=== PATIENT | male | born 1960 | race Caucasian/White ===

== ENCOUNTER 2024-11-29 11:59 | Emergency (ER) | payer MEDICARE, MEDICAID, SELFPAY ==
--- OUTSIDE RECORDS SUMMARY | 2024-11-26 12:09 | XMS_ITS | Continuity of Care Document ---
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 Name Role Phone Dany Gomez DO Primary Care Provider Sandra Velasco DO Attending Provider Sandra Velasco DO Referring Provider Peyton Arzate APRN Attending Provider Terell Benson DO Emergency Provider Care Teams Patient Care Team Team Status: Active Member Role Status Dates Dany Gomez DO Primary Care Provider Active Visit Care Team Team Status: Inactive Member Role Status Dates Dany Gomez DO Primary Care Provider Active St art: September 10, 2024 End: September 10, 2024 Sandra Velasco DO Attending Provider Active S tart: September 10, 2024 End: September 10, 2024 Visit Care Team Team Status: Inactive Member Role Status Dates Dany Gomez DO Primary Care Provider Active St art: September 14, 2024 End: September 14, 2024 Sandra Velasco DO Attending Provider Active S tart: September 14, 2024 End: September 14, 2024 Sandra Velasco DO Referring Provider Active S tart: September 14, 2024 End: September 14, 2024 Visit Care Team Team Status: Active Member Role Status Daily Gomez DO Primary Care Provider Active St art: November 23, 2024 Peyton Arzate APRN Attending Provider Active S tart: November 23, 2024 Patient Care Team Team Status: Inactive Member Role Status Dates Dany Gomez DO Primary Care Provider Active art: November 26, 2024 End: November 26, 2024 Terell Benson DO Emergency Provider Active art: November 26, 2024 End: November 26, 2024 Chief Complaint and Reason for Visit Chief Complaint Admit Date SOB, Syncope September 10, 2024 8:0 9am SOB, Syncope September 14, 2024 11: 31am Z98.61 I25.10 November 23, 2024 1:00p m Syncope November 26, 2024 12:1 6pm Reason for Referral Referring Provider Name Referring Provider Address Referring Provider Phone Referral Date Requested Appointment Date Referral Reason W Sachin Rod [address] [address] [facility] [address] Work Phone: previous appointments cancelled previous appointments cancelled Allergies, Adverse Reactions, Alerts Allergen Type Severity Reaction Last Updated Verified Status beta blockers Adverse Reaction Unknown sleepy, couldn't function September 10, 2024 8:53am No Active Social History Smoking Status Status Start Date End Date Date of Observa tion Smokes tobacco daily (finding) November 26, 2024 1:24pm Observation Status Observation Response Date of Response Legal Sex Male (finding) Sex Assigned At Male [birth year] Family History Relationship Condition Age at Onset Recorded Date/T edu father Diabetes mellitus Unknown Aneurysm Unknown Dementia Unknown Neuropathy Unknown Hypertension Unknown Malignant neoplasm Unknown sister Malignant neoplasm Unknown Problems Active Problems Medical Problem Onset Date Status Syncope Unknown Active 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 Unknown Active GERD (gastroesophageal reflux disease) Unknown Active Galeas's esophagus Unknown Active Medications Medication Status Dose Units Route Directions Qty Days St art Date Stop Date End Date Instructions Adherence Cyclobenzap rine 10 mg tablet Discont inued 10 MG PO Daily at bedtime 2020 12:00a m 2020 7:59a m Sucralfate (Carafate) 1 gram tablet Discont inued 1 GM PO Twice daily 2020 12:00a m September 10, 2024 8:49a m Simvastatin 40 mg tablet Active 40 MG PO Daily at bedtime 2020 12:00a m Unknown Albuterol Sulfate 90 mcg/actuati on HFA aerosol inhaler Active 90 MCG INHALA TION Twice daily as needed for Shortness Of Breath 2020 12:00a m Unknown Cyclobenzap rine 10 mg tablet Discont inued 10 MG PO Three times daily as needed for back spasms 20 2020 12:00a m September 10, 2024 8:50a m Cephalexin 500 mg capsule Discont inued 500 MG PO Three times daily 15 2020 12:00a m September 10, 2024 8:50a m Oxycodone 5 mg capsule Discont inued 5 - 10 MG PO Q6H as needed for pain 40 8 2020September 10, 2024 8:49a m Prednisone 10 mg tablets,dos e pack Discont inued 1 dose pk PO per package directions 30 2020 12:00a m September 10, 2024 8:49a m take 4 tabs for 3 days then take 3 tabs for 3 days then take 2 tabs for 3 days then take 1 tab for 3 days Ibuprofen 800 mg tablet Active 800 MG PO Every 8 hours as needed for pain September 10, 2024 12:00a m Unknown Budesonide- Formoterol (Breyna) 160-4.5 mcg/actuati on HFA aerosol inhaler Active 2 INH INHALA TION Twice daily September 10, 2024 12:00a m Unknown Latanoprost 0.005 % drops Active 1 DROPS EYE-LEE TH Daily at bedtime September 10, 2024 12:00a m Unknown Cyclobenzap rine 10 mg tablet Active 10 MG PO Twice daily as needed for back spasms September 10, 2024 12:00a m Unknown Ticagrelor (Brilinta) 90 mg tablet Active 90 MG PO Twice daily 180 September 14, 2024 12:00a m Unknown Lisinopril- Hydrochloro thiazide 20-12.5 mg tablet Active 1 TAB PO Daily at bedtime August 04, 2018 12:00a m Unknown Omeprazole 40 mg capsule,del ayed release(DR/ EC) Active 1 TAB PO Twice daily August 04, 2018 12:00a m Unknown Hyoscyamine Sulfate 0.125 mg tablet,disi ntegrating Active 1 TAB SUBLIN GUAL Q4H as needed for chest discomfort August 04, 2018 12:00a m Unknown Diazepam (Valium) 5 mg tablet Active 1 TAB PO Three times daily August 04, 2018 12:00a m Unknown Vortioxetin e (Trintellix ) 10 mg tablet Active 5 MG PO Twice daily August 04, 2018 12:00a m Unknown Immunizations Immunization Event Date Not Given Reason Dose Number [employer]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 Lot Number Vaccine Information Statement (VIS) Detail Administration Location COVID-19 mRNA, Comirnaty (Ignyta) September 12, 2020 COVID-19 mRNA, Comirnaty (Ignyta) October 03, 2020 Medical Equipment Device Date Implanted Device Details CL STENT YENNI FRONTIER 2.5 X 18 September 14, 2024 Spinal fixation plate, non-bioabsorbable February 06, 2021 RAÚL: ()[id number] Issuing Agency: [facility] Device Id: [id number] Spinal fixation plate, non-bioabsorbable February 06, 2021 RAÚL: ()[id number] Issuing Agency: [facility] Device Id: [id number] Spinal fixation plate, non-bioabsorbable February 06, 2021 RAÚL: ()[id number] Issuing Agency: [facility] Device Id: [id number] Spinal fixation plate, non-bioabsorbable February 06, 2021 RAÚL: ()[id number] Issuing Agency: [facility] Device Id: [id number] Spinal fixation plate, non-bioabsorbable February 06, 2021 RAÚL: ()[id number] Issuing Agency: [facility] Device Id: [id number] Spinal fixation plate, non-bioabsorbable February 06, 2021 RAÚL: ()[id number] Issuing Agency: [facility] Device Id: [id number] Spinal fixation plate, non-bioabsorbable February 06, 2021 RAÚL: ()[id number] Issuing Agency: [facility] Device Id: [id number] Intervertebral-body internal spinal fixation system February 06, 2021 RAÚL: ()[id number] Issuing Agency: [facility] Device Id: [id number] Expiration Date: 2024-06-12 Serial Number: [id number] Intervertebral-body internal spinal fixation system February 06, 2021 RAÚL: [id number] Issuing Agency: [facility] Device Id: [id number] Expiration Date: 2025-07-04 Serial Number: [id number] Procedures Procedure Date Performed Status CL LHC & COR Angio September 14, 2024 10:15am comp leted CL Stent 1st Vessel LAD FRANCESCO September 14, 2024 10: 15am completed XR chest 1V portable November 26, 2024 12:24pm com pleted Relevant Diagnostic Tests and/or Laboratory Data Laboratory Results Test Collection Date/Time Result Date/Time Result Interpretation Reference Range Result Comment Performing Site Corrected White Blood Count September 10, 2024 8:38am September 10, 2024 8:54am 9.5 10*3/uL 4.1-10.5 [facility] [id number] [address] [place], [place] [address] Corrected White Blood Count November 26, 2024 11:55am November 26, 2024 12:41pm 11.9 10*3/uL Above high normal 4.1-10.5 [facility] [id number] [address] [place], [place] [address] Uncorrect ed WBC Count September 10, 2024 8:38am September 10, 2024 8:54am 9.5 10*3/uL 4.1-10.5 [facility] [id number] [address] [place], [place] [address] Uncorrect ed WBC Count November 26, 2024 11:55am November 26, 2024 12:41pm 11.9 10*3/uL Above high normal 4.1-10.5 [facility] [id number] [address] [place], [place] [address] Red Blood Count September 10, 2024 8:38am September 10, 2024 8:54am 4.88 10*6/uL 3.90-5.60 [facility] [id number] [address] [place], [place] [address] Red Blood Count November 26, 2024 11:55am November 26, 2024 12:41pm 5.14 10*6/uL 3.90-5.60 [facility] [id number] [address] [facility] [address] Hemoglobi n September 10, 2024 8:38am September 10, 2024 8:54am 15.4 g/dL 13.0-17.0 [facility] [id number] [address] [facility] [address] Hemoglobi n November 26, 2024 11:55am November 26, 2024 12:41pm 16.1 g/dL 13.0-17.0 [facility] [id number] [address] [facility] [address] Hematocri t September 10, 2024 8:38am September 10, 2024 8:54am 45.2 % 38.8-50.0 [facility] [id number] [address] [place] [address] Hematocri t November 26, 2024 11:55am November 26, 2024 12:41pm 47.2 % 38.8-50.0 [facility] [id number] [address] [place] [address] Mean Corpuscul ar Volume September 10, 2024 8:38am September 10, 2024 8:54am 92.7 fL 83.5-101 [facility] [id number] [address] [place] [address] Mean Corpuscul ar Volume November 26, 2024 11:55am November 26, 2024 12:41pm 91.9 fL 83.5-101 [facility] [id number] [address] [place] [address] 900[address] Mean Corpuscul ar Hemoglobi n September 10, 2024 8:38am September 10, 2024 8:54am 31.6 pg 27.5-35.2 [facility] [id number] [address] [place] [address] 99937 Mean Corpuscul ar Hemoglobi n November 26, 2024 11:55am November 26, 2024 12:41pm 31.4 pg 27.5-35.2 [facility] [id number] [address] [facility] [address] Mean Corpuscul ar Hemoglobi n Concent September 10, 2024 8:38am September 10, 2024 8:54am 34.2 g/dL 32.5-35.6 [facility] [id number] [address] [facility] [address] Mean Corpuscul ar Hemoglobi n Concent November 26, 2024 11:55am November 26, 2024 12:41pm 34.2 g/dL 32.5-35.6 [facility] [id number] [address] [place] [address] 39825 Red Cell Distribut ion Width September 10, 2024 8:38am September 10, 2024 8:54am 13.9 % 12.0-14.8 [facility] [id number] [address] [place] [address] 68536 Red Cell Distribut ion Width November 26, 2024 11:55am November 26, 2024 12:41pm 14.0 % 12.0-14.8 [facility] [id number] [address] [place] [address]23 Platelet Count September 10, 2024 8:38am September 10, 2024 8:54am 224 10*3/uL 150-450 [facility] [id number] [address] [place] [address] Platelet Count November 26, 2024 11:55am November 26, 2024 12:41pm 362 10*3/uL 150-450 [facility] [id number] [address] [place] [address] Mean Platelet Volume September 10, 2024 8:38am September 10, 2024 8:54am 8.0 fL 6.6-10.1 [facility] [id number] [address] [place] [address] 9[address]60 Mean Platelet Volume November 26, 2024 11:55am November 26, 2024 12:41pm 8.3 fL 6.6-10.1 [facility] [id number] [address] [place] [address] 29393 Monocyte Distribut ion Width November 26, 2024 11:55am November 26, 2024 12:41pm 19.91 % 0.00-20.00 [facility] [id number] [address] [place] [address] Neutrophi ls (%) (Auto) September 10, 2024 8:38am September 10, 2024 8:54am 69.8 % . [facility] [id number] [address] [facility] [address] Neutrophi ls (%) (Auto) November 26, 2024 11:55am November 26, 2024 12:41pm 76.9 % . [facility] [id number] [address] [facility] [address] Lymphocyt es (%) (Auto) September 10, 2024 8:38am September 10, 2024 8:54am 19.2 % . [facility] [id number] [address] [facility] [address] Lymphocyt es (%) (Auto) November 26, 2024 11:55am November 26, 2024 12:41pm 16.4 % . [facility] [id number] [address] [facility] [address] Monocytes (%) (Auto) September 10, 2024 8:38am September 10, 2024 8:54am 6.4 % . [facility] [id number] [address] [facility] [address] Monocytes (%) (Auto) November 26, 2024 11:55am November 26, 2024 12:41pm 5.0 % . [facility] [id number] [address] [facility] [address] Eosinophi ls (%) (Auto) September 10, 2024 8:38am September 10, 2024 8:54am 3.9 % . [facility] [id number] [address] [facility] [address] Eosinophi ls (%) (Auto) November 26, 2024 11:55am November 26, 2024 12:41pm 1.1 % . [facility] [id number] [address] [facility] [address] Basophils (%) (Auto) September 10, 2024 8:38am September 10, 2024 8:54am 0.7 % . [facility] [id number] [address] [facility] [address] Basophils (%) (Auto) November 26, 2024 11:55am November 26, 2024 12:41pm 0.6 % . [facility] [id number] [address] [facility] [address] Nucleated RBC Relative Count (auto) September 10, 2024 8:38am September 10, 2024 8:54am 0.1 /100{WB C} 0-0.5 [facility] [id number] [address] [place], [place] [address] Nucleated RBC Relative Count (auto) November 26, 2024 11:55am November 26, 2024 12:41pm 0.2 /100{WB C} 0-0.5 [facility] [id number] [address] [place], [place] [address] Neutrophi ls # (Auto) September 10, 2024 8:38am September 10, 2024 8:54am 6.6 10*3/uL 1.8-7.7 [facility] [id number] [address] [place], [place] [address] Neutrophi ls # (Auto) November 26, 2024 11:55am November 26, 2024 12:41pm 9.2 10*3/uL Above high normal 1.8-7.7 [facility] [id number] [address] [place], [place] [address] Lymphocyt es # (Auto) September 10, 2024 8:38am September 10, 2024 8:54am 1.8 10*3/uL 1.00-4.8 [facility] [id number] [address] [place], [place] [address] Lymphocyt es # (Auto) November 26, 2024 11:55am November 26, 2024 12:41pm 2.0 10*3/uL 1.00-4.8 [facility] [id number] [address] [place], [place] [address] Monocytes # (Auto) September 10, 2024 8:38am September 10, 2024 8:54am 0.6 10*3/uL 0.0-0.8 [facility] [id number] [address] [place], [place] [address] Monocytes # (Auto) November 26, 2024 11:55am November 26, 2024 12:41pm 0.6 10*3/uL 0.0-0.8 [facility] [id number] [address] [place], [place] [address] Eosinophi ls # (Auto) September 10, 2024 8:38am September 10, 2024 8:54am 0.4 10*3/uL 0.0-0.45 [facility] [id number] [address] [facility] [address] Eosinophi ls # (Auto) November 26, 2024 11:55am November 26, 2024 12:41pm 0.1 10*3/uL 0.0-0.45 [facility] [id number] [address] [facility] [address] Basophils # (Auto) September 10, 2024 8:38am September 10, 2024 8:54am 0.1 10*3/uL 0.0-0.2 [facility] [id number] [address] [facility] [address] Basophils # (Auto) November 26, 2024 11:55am November 26, 2024 12:41pm 0.1 10*3/uL 0.0-0.2 [facility] [id number] [address] [facility] [address] Prothromb in Time September 10, 2024 8:38am September 10, 2024 9:24am 10.6 s 9.0-12.9 A hematocrit value greater than 55% may lead to inaccurate results in coagulation testing. Patients having hematocrit values >55% require a special collection tube for coagulation studies. Please contact the laboratory at [phone] for redraw instructions . [facility] [id number] [address] [facility] [address] Prothromb in Time November 26, 2024 11:55am November 26, 2024 1:12pm 11.8 s 9.0-12.9 A hematocrit value greater than 55% may lead to inaccurate results in coagulation testing. Patients having hematocrit values >55% require a special collection tube for coagulation studies. Please contact the laboratory at [phone] for redraw instructions . [facility] [id number] [address] [facility] [address] Prothromb Time Internati onal Ratio September 10, 2024 8:38am September 10, 2024 9:24am 0.9 INR Therapeutic Range A) Pre- and Peroperative OAT started two weeks before surgery. NOT HIP SURGERY: 1.5 - 2.5 HIP SURGERY: 2 - 3B) Primary and secondary prevention of venous THROMBOSIS: 2 - 3C) Active venous thrombosis, pulmonary embolismand prevention of recurrent venous thrombosis: 2 - 3D) Prevention of arterial thromboembol ismincluding patients with mechanical heart valves: 3 - 4.5 [facility] [id number] [address] [place] [address] Prothromb Time Internati onal Ratio November 26, 2024 11:55am November 26, 2024 1:12pm 1.0 INR Therapeutic Range A) Pre- and Peroperative OAT started two weeks before surgery. NOT HIP SURGERY: 1.5 - 2.5 HIP SURGERY: 2 - 3B) Primary and secondary prevention of venous THROMBOSIS: 2 - 3C) Active venous thrombosis, pulmonary embolismand prevention of recurrent venous thrombosis: 2 - 3D) Prevention of arterial thromboembol ismincluding patients with mechanical heart valves: 3 - 4.5 [facility] [id number] [address] [place] [address] Activated Partial Thrombopl ast Time September 10, 2024 8:38am September 10, 2024 9:24am 31.7 s 25.1-36.5 A hematocrit value greater than 55% may lead to inaccurate results in coagulation testing. Patients having hematocrit values >55% require a special collection tube for coagulation studies. Please contact the laboratory at [phone] for redraw instructions . [facility] [id number] [address] [place] [address] Glucose Level November 26, 2024 11:55am November 26, 2024 12:59pm 181 mg/dL Above high normal 70-100 ADA recommended reference rangeRandom Glucose Reference Range is dependent on time and content of last meal. Glucose of more than 200 mg/dL in a nonstressed, ambulatory subject supports the diagnosis of Diabetes Mellitus. [facility] [id number] [address] [facility] [address] Blood Urea Nitrogen September 10, 2024 8:38am September 10, 2024 10:08am 19 mg/dL 12-11 [facility] [id number] [address] [place], [place] [address] Blood Urea Nitrogen November 26, 2024 11:55am November 26, 2024 12:59pm 22 mg/dL 12-11 [facility] [id number] [address] [facility] [address] Creatinin e September 10, 2024 8:38am September 10, 2024 10:08am 1.18 mg/dL 0.70-1.30 [facility] [id number] [address] [facility] [address] Creatinin e November 26, 2024 11:55am November 26, 2024 12:59pm 1.91 mg/dL Above high normal 0.70-1.30 [facility] [id number] [address] [place] [address] Estimated GFR (CKD-EPI) September 10, 2024 8:38am September 10, 2024 10:08am > 60.0 mL/Min [facility] [id number] [address] [place] [id number] Estimated GFR (CKD-EPI) November 26, 2024 11:55am November 26, 2024 12:59pm 39.145 mL/Min [facility] [id number] [address] [place], [place] [address] Sodium Level September 10, 2024 8:38am September 10, 2024 10:08am 142 mmol/L 136-145 [facility] [id number] [address] [place], [place] [address] Sodium Level November 26, 2024 11:55am November 26, 2024 12:59pm 139 mmol/L 136-145 [facility] [id number] [address] [place] [address]34 Potassium Level September 10, 2024 8:38am September 10, 2024 10:08am 4.2 mmol/L 3.5-5.1 [facility] [id number] [address] [place], [place] [address] Potassium Level November 26, 2024 11:55am November 26, 2024 12:59pm 3.8 mmol/L 3.5-5.1 [facility] [id number] [address] [place], [place] [address] Chloride Level September 10, 2024 8:38am September 10, 2024 10:08am 104 mmol/L 98-107 [facility] [id number] [address] [place], [place] [address] Chloride Level November 26, 2024 11:55am November 26, 2024 12:59pm 100 mmol/L 98-107 [facility] [id number] [address] [place] [address]153 Carbon Dioxide Level September 10, 2024 8:38am September 10, 2024 10:08am 28.4 mmol/L 21.0-31.0 [facility] [id number] [address] [place] [address] 0[address]60 Carbon Dioxide Level November 26, 2024 11:55am November 26, 2024 12:59pm 26.5 mmol/L 21.0-31.0 [facility] [id number] [address] [place] [address] 86096 Anion Gap September 10, 2024 8:38am September 10, 2024 10:08am 13.8 mEq/L 6.0-15.0 [facility] [id number] [address] [place] [address] 80359 Anion Gap November 26, 2024 11:55am November 26, 2024 12:59pm 16.3 mEq/L Above high normal 6.0-15.0 [facility] [id number] [address] [place], [place] [address] Calcium Level November 26, 2024 11:55am November 26, 2024 12:59pm 9.8 mg/dL 8.6-10.3 [facility] [id number] [address] [place] [address] 36432 Total Creatine Kinase November 26, 2024 11:55am November 26, 2024 1:00pm 77 U/L 30-223 [facility] [id number] [address] [place], [place] [address] Troponin I High Sensitivi ty November 26, 2024 2:47pm November 26, 2024 3:49pm 7 ng/L 0-20 The Troponin units of report have been changed to meet the Chest Pain Accreditatio n requirement, element EC5.M1l2. Troponin units are changed from pg/ml to ng/L. Also, the decimal is removed and results are in whole numbers. [facility] [id number] [address] [place] [address]55 B-Type Natriuret ic Peptide November 26, 2024 11:55am November 26, 2024 1:05pm 19.0 pg/mL 5-100 [facility] [id number] [address] [facility] [address] Cholester ol Level September 10, 2024 8:38am September 10, 2024 10:08am 158 mg/dL 140-200 Chol less than 200 mg/dl low riskChol 201-239 mg/dl borderline riskChol 240 mg/dl and greater high risk [facility] [id number] [address] [facility] [address] HDL Cholester ol September 10, 2024 8:38am September 10, 2024 10:08am 54 mg/dL 23-92 HDL CHOL ATP-III CLASSIFICATI ON Cardiovascul ar RiskHDL > or equal to 60 mg/dL LOWHDL < 40 mg/dL HIGH [facility] [id number] [address] [facility] [address] Triglycer ides Level September 10, 2024 8:38am September 10, 2024 10:08am 85 mg/dL 0-149 TRIG ATP III CLASSIFICATI ONTRIG less than 150 mg/dL NormalTRIG 150-199 mg/dL Borderline highTRIG 200-500 mg/dL High TRIG greater than 500 mg/dL Very highStandard traceable to the Center for Disease Conrtrol and Prevention (CDC) test method. [facility] [id number] [address] [place], [place] [address] LDL Cholester ol, Calculate d September 10, 2024 8:38am September 10, 2024 10:08am 87 mg/dL 0-100 LDL ATP III CLASSIFICATI ONLDL less than 100 mg/dL OptimalLDL 100-129 mg/dL Near or above optimalLDL 130-159 mg/dL Borderline highLDL 160-189 mg/dL HighLDL greater than 189 mg/dL Very high [facility] [id number] [address] [place] [address] 8[address]17 VLDL Cholester ol September 10, 2024 8:38am September 10, 2024 10:08am 17 mg/dL [facility] [id number] [address] [place], [place] [id number] Cholester ol/HDL Ratio September 10, 2024 8:38am September 10, 2024 10:08am 2.9 <5.0 [facility] [id number] [address] [place], [place] [id number] Pharmacy Creatinin e Clearance (Chem September 10, 2024 8:38am September 10, 2024 10:08am N/A [facility] [id number] [address] [place], [place] [id number] Pharmacy Creatinin e Clearance (Chem November 26, 2024 11:55am November 26, 2024 12:59pm 52.64 [facility] [id number] [address] [place], [place] [id number] Diagnostic Imaging Reports Author Red Nash [facility] Report Date/Time November 26, 2024 1:00 pm [facility] Main [place] [id number] XRay Report Signed Patient: Justen Lynne Jr MR#: [id number] : 1960 Acct:[id number] Age/Sex: 64 / M ADM Date: 5 Loc: ER Room: Type: PRE ER Attending Dr: Copies to: Terell Benson DO~ Ordering Provider: Terell Benson DO Date of Service: 11/26/24 XR/XR chest 1V portable: Chest Pain SINGLE VIEW CHEST CLINICAL HISTORY: Syncope shortness breath, dizziness, hypotensive COMPARISON: 10/05/2022 FINDINGS: Mildly enlarged cardiac silhouette. No airspace opacity, effusion or pneumothorax. XR/XR chest 1V portable IMPRESSION: NO ACUTE FINDINGS Impression dictated by: Red Nash M.D. 11/26/2024 1:00 PM Dictation Location: [place] [address] Transcribed By: [facility] 11/26/24 1300 Dictated By: Red Nash MD 11/26/24 1258 Signed By: <Electronically signed by Red Nash MD in OV> 11/26/24 1300 Vital Signs Vital Reading Result Reference Range Collection Date/Time Height 72 [in_i] September 14 8:25am Weight 108.00 kg September 14 8:25am Body Temperature 98.5 [degF] 97.6-99.0 September 14, 2024 8:25am Heart Rate 79 /min 60-100 September 14 3:45pm Respiratory rate 18 /min 12-24 September 14, 2024 3:45pm Oxygen saturation by Pulse oximetry 98 % 95-100 September 14, 2024 3:4 5pm BP Systolic 149 mm[Hg] 100-140 September 14 3:45pm BP Diastolic 86 mm[Hg] 60-100 September 14 3:45pm Height 72 [in_i] October 20, 2024 11:44am Weight 107.18 kg October 20, 2024 11:44am Height 72 [in_i] November 26, 2024 12:21pm Weight 115.60 kg November 26, 2024 12:21pm Body Temperature 98.2 [degF] 97.6-99.0 November 26, 2024 12:21pm Heart Rate 95 /min 60-100 November 26, 2024 3:32pm Respiratory rate 20 /min -November 26, 2024 3:32pm Oxygen saturation by Pulse oximetry 98 % 95-100 November 26, 2024 3:32 pm BP Systolic 120 mm[Hg] 100-140 November 26, 2024 3:32pm BP Diastolic 71 mm[Hg] 60-100 November 26, 2024 3:32pm Advance Directives Advance Directive Response Recorded Date/ Time Advance Directives No July 29 10:45am Insurance Providers Guarantor Justen Lynne Jr Address [address] [place] [phone] Contact Info. Home Phone: Payer Policy Id Subscriber's Name Subscriber Id Corinne ctive Date Expiration Date Medicaid [id number] Justen Lynne Jr [id number] [facility] Medicaid [id number] Justen Lynne Jr [id number] [place] [id number] Justen Lynne Jr [id number] [employer] HMO [id number] Justen Lynne Jr [id number] Encounters Encounter Location(s) Arrival/Admit Date Discharge/Depart Date Provider(s) Departed Clinical -Pre-Surgical Testing September 10, 2024 8:09am September 10, 2024 8:10am Sadnra Velasco DO Departed Surgical Day Care -Rn Gyn September 14, 2024 11:31am September 14, 2024 4:00pm Sandra Velasco DO Registered Recurring -Cardiac Rehabilitation November 23, 2024 1:00pm Peyton Arzate APRN Departed Emergency -Emergency Room November 26, 2024 12:16pm November 26, 2024 4:08pm Functional Status Observation Response Date Recorded Dressing Patient at Baseline September 14, 2024 4:00pm Eating Patient at Baseline September 14, 2024 4:00pm Bathing Patient at Baseline September 14, 2024 4:00pm Disability Status Patient at Baseline August 4:00pm Mental Status Observation Response Date Recorded Cognitive Status Patient at Baseline September 14, 2024 4:00pm Cognitive/Mental Status Assessments Plan of Treatment Future Tests Future scheduled test information is unavailable Pending Tests Pending diagnostic test information is unavailable Future Visits Future appointment information is unavailable Referrals to Other Providers Reason for Referral Referral Start Date Provider Provider Contact Information Provider Address previous appointments cancelled Sandra Velasco DO Email: [email or web address] Work Phone: [address] [facility] [address] Dany Gomez , DO Email: [email or web address] Phone: [address] [facility] [address] Dany Gomez , DO Email: [email or web address] Phone: [address] [place] [phone] Future Procedures Procedure Name Ordered Date Scheduled Date Admit Status Order September 14, 2024 12:05pm Apri l 2024 12:05pm Discharge Order September 14, 2024 11:18am August 192024 11:18am Future Medications Future medication information is unavailable Patient Instructions Instruction Admit Date Drug Eluting Stents Chest pain - Discharge instructions Angina Angiogram / Angioplasty / Stent Placement Know your Meds September 14, 2024 11:31am Syncope (fainting) - Dischar ge instructions Dehydration in adults - ED discharge instructions November 26, 2024 12:16pm Goals Acute Goals Author Authored Date Experience reduced anxiety * Identifies current stressors * Develops effective coping behaviors * Uses support services as appropriate [facility] September 14, 2024 6:40pm Remain free of complications [facility] September 14, 2024 6:40pm Understand preop/postop care/sensations * Verbalizes understanding of surgical procedure * Verbalizes understanding of sensations following surgery * Verbalizes understanding of post-op treatment plan [facility] September 14, 2024 6:40pm Report pain at tolerable lev el * Uses pain scale appropriately * Identify options for pain control - Analgesics - Narcotics - Non-medication measures [facility] September 14, 2024 6:40pm Absence of imbalanced fluid volume s/s [facility] September 14, 2024 6:40pm Absence of physical injury [facility] September 14, 2024 6:40pm Absence of surgical site infection [facility] September 14, 2024 6:40pm
[2024-11-29 12:06] VITALS: BP 180/109; PULSE 101; TEMP 36.6; O2SAT 97; BMI 33.5
--- NOTE | 2024-11-29 12:15 | XR_ITS ---
The [address] [address] Patient Name: VINCENT BUTCHER MRN: [id number] date: 1960 Sex: M Assigned Patient Location: ER Current Patient Location: ER Accession/Order Number: [id number] Exam Date: 11/29/2024 12:48 Report Date: 11/29/2024 12:51 At the request of: ANN FRIEDMAN NP Procedure: XR ribs RT min 3V w CXR1V XR ribs RT min 3V w CXR1V 11/29/2024 12:41 PM SIGNS AND SYMPTOMS: ^s/p fall, pain mid lateral region PROTOCOL: Frontal radiograph of the chest with oblique radiographs of the right ribs COMPARISON: None FINDINGS: The trachea is midline. The heart and mediastinal structures are within normal limits. The lung parenchyma is clear. Degenerative changes are noted in the shoulders and thoracic spine. Fusion hardware is noted in the cervical spine. There is evidence of prior cholecystectomy in the right upper quadrant. XR/XR ribs RT min 3V w CXR1V IMPRESSION: No acute cardiopulmonary pathology. No acute displaced rib fracture. Impression dictated by: Maciej Bill M.D. 11/29/2024 12:51 PM Dictation Location: [facility] Electronically authenticated by: [id number] Y Date: 11/29/2024 12:51
--- NOTE | 2024-11-29 12:17 | ED_ITS ---
HPI HPI - General Adult General Chief complaint: Back Pain/Injury Stated complaint: FLANK PAIN Time Seen by Provider: 11/29/24 12:06 Source: patient Mode of arrival: walk-in History of Present Illness HPI narrative: The patient is a 64-year-old male who presents to the emergency department today for evaluation concerns for chest wall pain. Patient endorses on 11/26 he was mowing his parents lawn when he subsequently had 3 syncopal episodes. He states he was seen at [facility] following this and noted to have hypotension. He does endorse a history of recent coronary stenting from September 2024. He reports since then he has had pain to the lateral side of his right chest and states he is concerned for broken ribs because he fell into some bricks during one of the syncopal episodes. He denies any significant shortness of breath. He does endorse pain with inspiration. He mentions he has not taken any [id number] analgesics for this pain. Related Data Home Medications ?Medication ?Instructions ?Recorded ?Confirmed albuterol sulfate 90 mcg/actuation inhalation 11/29/24 aerosol inhaler budesonide-formoterol HFA 160 inhalation 11/29/24 mcg-4.5 mcg/actuation aerosol inhaler (Symbicort) clopidogrel 75 mg tablet mg 11/29/24 cyclobenzaprine 10 mg tablet mg 11/29/24 diazepam 5 mg tablet mg 11/29/24 latanoprost 0.005 % eye drops drp ophthalmic (eye) lisinopril 20 tab 11/29/24 mg-hydrochlorothiazide 12.5 mg tablet omeprazole 40 mg capsule,delayed mg 11/29/24 release pantoprazole 40 mg tablet,delayed mg PO 11/29/24 release simvastatin 40 mg tablet mg 11/29/24 vortioxetine 10 mg tablet mg 11/29/24 (Trintellix) Allergies Allergy/AdvReac Type Severity Reaction Status Date / Time betablockers Allergy Severe Anaphylaxis Uncoded 11/29/24 12:15 Review of Systems ROS Status of ROS 10 or more systems reviewed and unremark able except as noted in history and below PFSH PFSH Social History Little interest or pleasure in doing things: not at all Feeling down, depressed, or hopeless: not at all Exam Narrative Exam Narrative: Constituational: Awake/ alert, no apparent distress, well hydrated HENMT: normocephalic, external ears normal, moist oral mucous membranes and oropharynx normal Eyes: EOMI and conjunctivae normal Neck: ROM intact Chest: inspection of chest normal Respiratory: Normal respiratory effort, clear to auscultation bilaterally Cardio: regular rate and regular rhythm Chest: +pain with palpation over R mid lateral region with small area of ecchymosis, no crepitus or deformity GI: soft to palpation and non-tender Back: nontender MSK: ROM intact, +NVI Skin: no rashes or petechiae Neuro: no focal deficits Psych: mental status grossly normal Constitutional Vital Signs, click to edit/add: Last Vital Signs Temp 98 F 11/29/24 12:06 Pulse 101 H 11/29/24 12:06 Resp 20 11/29/24 12:06 BP 180/109 H 11/29/24 12:06 Pulse Ox 97 11/29/24 12:06 O2 Del Method Room Air 11/29/24 12:06 Course Vital Signs Vital signs: Vital Signs Temperature 98 F 11/29/24 12:06 Pulse Rate 101 H 11/29/24 12:06 Respiratory Rate 20 11/29/24 12:06 Blood Pressure 180/109 H 11/29/24 12:06 Pulse Oximetry 97 11/29/24 12:06 Oxygen Delivery Method Room Air 11/29/24 12:06 Temperature 98 F 11/29/24 12:06 Pulse Rate 101 H 11/29/24 12:06 Respiratory Rate 20 11/29/24 12:06 Blood Pressure 180/109 H 11/29/24 12:06 Pulse Oximetry 97 11/29/24 12:06 Oxygen Delivery Method Room Air 11/29/24 12:06 Medical Decision Making [facility] Narrative Medical decision making narrative: Patient is a well-appearing 64-year-old male who presented to the emergency department today for evaluation of concerns for chest wall pain 2/2 blunt injury from syncopal falls on 11/26. Again historically patient had been seen for syncopal episodes at [facility] on 11/26. He presented today due to concerns for chest wall pain and for possible broken ribs. Initial examination patient with noted contusion to mid lateral right chest wall. Patient offered analgesic medication and declined as he mentioned his pain was not that significant. Chest x-ray and x-ray of right ribs without critical findings including fractures. Discussed this with the patient including recommendations for supportive care. Patient advised on splinting techniques and deep breathing exercises. Discussed signs and symptoms of any worsening condition and when to consider reevaluation by the emergency department. Patient verbalized an understanding of this and is agreeable with the plan to be discharged home. Medical Records Medical records reviewed: Yes I reviewed the patient's medical records Imaging Data XR Right Ribs w/ 1V: Attestation: I have reviewed the pertinent imaging results. Radiologist's impression: ITS Impressions Ribs X-Ray 11/29/24 12:15 IMPRESSION: No acute cardiopulmonary pathology. No acute displaced rib fracture. Impression dictated by: Maciej Bill M.D. 11/29/2024 12:51 PM Dictation Location: [employer] Electronically authenticated by: [id number] Y Date: 11/29/2024 12:51 Discharge Plan Discharge Chief Complaint: Back Pain/Injury Clinical Impression: Contusion of chest wall Patient Disposition: Home, Self-Care Prescriptions / Home Meds: No Action cyclobenzaprine 10 mg tablet latanoprost 0.005 % drops OPHTHALMIC (EYE) lisinopril-hydrochlorothiazide 20-12.5 mg tablet clopidogrel 75 mg tablet omeprazole 40 mg capsule,delayed release(DR/EC) simvastatin 40 mg tablet pantoprazole 40 mg tablet,delayed release (DR/EC) PO albuterol sulfate 90 mcg/actuation HFA aerosol inhaler INHALATION diazepam 5 mg tablet budesonide-formoterol [Symbicort] 160-4.5 mcg/actuation HFA aerosol inhaler INHALATION Trintellix 10 mg tablet Print Language: Iranian Instructions: Chest Contusion (ED) Additional Instructions: May take Tylenol as needed for any pain. Ice any sore areas. Splint your chest as discussed. Take deep breaths as discussed. Follow-up with your primary care provider for reevaluation as discussed. Referrals: Physician,Non-Staff, MD [Primary Care Provider] - 1 week
--- NOTE | 2024-11-29 13:44 | ECG_ITS ---
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: : 1960 Requested By: Order Number: [id number] Reading MD: ERICA BARAHONA Measurements Intervals [place] Rate: 104 P: 38 NC: 168 QRS: 38 QRSD: 90 T: 51 QT: 334 QTc: 395 Interpretive Statements 1120 Sinus tachycardia 2420 RSR (QR) in lead V1/V2, consistent with right ventricular conduction delay 3113 Cannot rule out anterior myocardial infarction, probably old 3623 Possible inferior myocardial infarction, probably old 8102 Low QRS voltage in chest leads 9150 abnormal ECG Compared to ECG 08/21/2017 11:13:09 Myocardial infarct finding now present Low QRS voltage now present Electronically Signed On 12-01-2024 16:29:42 EDT by ERICA BARAHONA
== END 2024-11-29 13:06 | disposition home or self-care (01) ==
PROVIDERS: Emergency Provider Emergency Medicine
DX: S20.211A Contusion of right front wall of thorax, initial encounter (principal); W18.39XA Other fall on same level, initial encounter; Y93.H9 Activity, other involving exterior property and land maintenance, building and construction
CPT/HCPCS: 71101; 93005; 99284